=== PATIENT | male | born 1940 | race Caucasian/White ===

== ENCOUNTER 2021-01-30 09:29 | Emergency (ER) | payer MEDICARE, OTHER ==
[~2021-01-30] VITALS: Ht 175.3 cm; Wt 111.1 kg
[~2021-01-30 09:29] MED LIST: ALLOPURINOL300 MG PO; AMOXICILLIN500 MG PO; AREDS2; ASPIRIN EC81 MG PO; ATENOLOL50 MG PO; AUGMENTIN 875-1 EACH PO; CARVEDILOL25 MG PO; CEFTIN250 MG PO; CLINDAMYCIN HC150 MG PO; FAMOTIDINE40 MG PO; FUROSEMIDE20 MG PO; FUROSEMIDE40 MG PO; HYDROCHLOROTHIA50 MG PO; KEFLEX500 MG PO; KETOCONAZOLE15 GM TOP; LANTUS100 UNITS/ SUB-Q; LISINOPRIL20 MG PO; LISINOPRIL40 MG PO; LOVASTATIN20 MG PO; LOVASTATIN40 MG PO; METFORMIN HCL500 MG PO; METFORMIN HCL750 MG PO; NOVOLOG FL100 UNIT/1 SUB-Q; OMEPRAZOLE20 MG PO; OMNIPOD1 EACH SUB-Q; PREDNISONE20 MG PO; SPIRONOLACTONE25 MG PO; VICTOZA 3-0.6 MG/0.1 SUB-Q; VITAMIN D5000 UNIT PO; WARFARIN SODIUM5 MG PO
--- NOTE | 2021-01-30 12:24 | EKG ---
[facility] [address] [facility] [place] [address] Signed Sinus rhythm with 1st degree AV block Low voltage QRS Borderline ECG When compared with ECG of 06-JAN-2017 21:45, Sinus rhythm has replaced Atrial fibrillation Vent. rate has decreased BY 32 BPM Confirmed by RAFAEL PALAFOX DO ([id number]) on 01/30/2021 12:23:49 PM Electronically Signed By: RAFAEL PALAFOX DO 01/30/21 1224 PATIENT NAME: WILYL VELASQUEZ Electrocardiogram DATE OF : 42 PHYSICIAN: RAFAEL PALAFOX DO REPORT #: [id number] REPORT IS CONFIDENTIAL AND NOT TO BE RELEASED WITHOUT AUTHORIZATION
== END 2021-01-30 14:26 | disposition home or self-care (01) ==
LOC: ED 09:29
DX: D64.9 Anemia, unspecified (principal); E11.22 Type 2 diabetes mellitus with diabetic chronic kidney disease; I12.9 Hypertensive chronic kidney disease with stage 1 through stage 4 chronic kidney disease, or unspecified chronic kidney disease; N18.9 Chronic kidney disease, unspecified; E78.00 Pure hypercholesterolemia, unspecified; I48.91 Unspecified atrial fibrillation; Z87.891 Personal history of nicotine dependence; Z79.4 Long term (current) use of insulin; Z79.899 Other long term (current) drug therapy; Z79.01 Long term (current) use of anticoagulants; Z79.82 Long term (current) use of aspirin
CPT/HCPCS: 76705; 80053; 83735; 84484; 85025; 85610; 93005; 93010; 99284-25

== ENCOUNTER 2022-06-28 00:23 | Emergency (ER) | payer MEDICARE, OTHER ==
[~2022-06-28] VITALS: Ht 175.3 cm; Wt 116.6 kg
[~2022-06-28 00:23] MED LIST changes: +INSULIN AS100 UNIT/2 SUB-Q; +OZEMPIC1 MG/0.71 SUB-Q
== END 2022-06-28 01:11 | disposition home or self-care (01) ==
LOC: ED 00:23
DX: R04.0 Epistaxis (principal); I11.0 Hypertensive heart disease with heart failure; I50.9 Heart failure, unspecified; E11.9 Type 2 diabetes mellitus without complications; I25.10 Atherosclerotic heart disease of native coronary artery without angina pectoris; E78.00 Pure hypercholesterolemia, unspecified; I48.91 Unspecified atrial fibrillation; Z87.891 Personal history of nicotine dependence; Z79.899 Other long term (current) drug therapy; Z79.4 Long term (current) use of insulin; Z79.01 Long term (current) use of anticoagulants
CPT/HCPCS: 36415; 85610; 99283

== ENCOUNTER 2023-04-13 23:15 | Emergency (ER) | payer MEDICARE, OTHER ==
[~2023-04-13] VITALS: Ht 175.3 cm; Wt 118.0 kg
--- OUTSIDE RECORDS SUMMARY | ~2023-04-13 | XMS | Continuity of Care Document ---
Demographics + + + | Address | [address] | | | [place] [address] | + + + | Preferred Language | Unknown | + + + | Marital Status | | + + + | Taoism Affiliation | Unknown | + + + | Race | White | + + + | Ethnic Group | Not or | + + + Author + + + | Author | [facility] | + + + | Organization | [facility] | + + + | Address | [address] [facility] | | | [place] [address] | + + + | Phone | | + + + Care Team Providers + + + + | Care Base Draw Operator Name | Role | Phone | + + + + Unavailable | Unavailable | + + + + Unavailable | Unavailable | + + + + Unavailable | Unavailable | + + + + Unavailable | Unavailable | + + + + Allergies and Intolerances + + + + + + | date | description | facility | reaction | severity | + + + + + + | (no date) | No Known | [facility] | (no reaction) | (no severity) | | | Allergies | | | | + + + + + + Encounters No information. Functional Status No information. Immunizations + + + + | date | description | facility | + + + + | 2022-06-28 00:00 | No vaccine administered | [facility] | + + + + Medications + + + + | date | description | facility | + + + + | 2022-06-28 00:00 | ALLOPURINOL | [facility] | + + + + | 2022-06-28 00:00 | allopurinol 300 MG Oral | [facility] | | | Tablet | | + + + + | 2022-06-28 00:00 | ATENOLOL | [facility] | + + + + | 2022-06-28 00:00 | atenolol 50 MG Oral Tablet | [facility] | | | | | + + + + | 2016-06-27 00:00 | CLINDAMYCIN HCL | [facility] | + + + + | 2016-06-27 00:00 | clindamycin 150 MG Oral | [facility] | | | Capsule | | + + + + | 2022-06-28 00:00 | HYDROCHLOROTHIAZIDE | [facility] | + + + + | 2022-06-28 00:00 | hydrochlorothiazide 50 MG | [facility] | | | Oral Tablet | | + + + + | 2022-06-28 00:00 | LISINOPRIL | [facility] | + + + + | 2022-06-28 00:00 | lisinopril 40 MG Oral | [facility] | | | Tablet | | + + + + | 2022-06-28 00:00 | LOVASTATIN | [facility] | + + + + | 2022-06-28 00:00 | lovastatin 40 MG Oral | [facility] | | | Tablet | | + + + + | 2022-06-28 00:00 | OMEPRAZOLE | [facility] | + + + + | 2022-06-28 00:00 | omeprazole 20 MG Delayed | [facility] | | | Release Oral Capsule | | + + + + | 2022-06-28 00:00 | CARVEDILOL | [facility] | + + + + | 2022-06-28 00:00 | carvedilol 25 MG Oral | [facility] | | | Tablet | | + + + + | 2022-06-28 00:00 | KETOCONAZOLE | [facility] | + + + + | 2022-06-28 00:00 | ketoconazole 20 MG/ML | [facility] | | | Topical Cream | | + + + + | 2016-06-27 00:00 | CEPHALEXIN | [facility] | + + + + | 2016-06-27 00:00 | cephalexin 500 MG Oral | [facility] | | | Capsule [Keflex] | | + + + + | 2022-06-28 00:00 | 3 ML semaglutide 1.34 | [facility] | | | MG/ML Pen Injector | | | | [Ozempic] | | + + + + | 2022-06-28 00:00 | Semaglutide | [facility] | + + + + | 2022-06-28 00:00 | FAMOTIDINE | [facility] | + + + + | 2022-06-28 00:00 | famotidine 40 MG Oral | [facility] | | | Tablet | | + + + + | 2022-06-28 00:00 | INSULIN GLARGINE | [facility] | + + + + | 2022-06-28 00:00 | insulin glargine 100 | [facility] | | | UNT/ML Injectable Solution | | | | [Lantus] | | + + + + | 2014-01-24 00:00 | AMOXICILLIN | [facility] | + + + + | 2014-01-24 00:00 | amoxicillin 500 MG Oral | [facility] | | | Capsule | | + + + + | 2022-06-28 00:00 | ASPIRIN | [facility] | + + + + | 2022-06-28 00:00 | aspirin 81 MG Delayed | [facility] | | | Release Oral Tablet | | + + + + | 2022-06-28 00:00 | Insulin Aspart | [facility] | + + + + | 2022-06-28 00:00 | insulin aspart, human 100 | [facility] | | | UNT/ML Injectable Solution | | + + + + | 2022-06-28 00:00 | FUROSEMIDE | [facility] | + + + + | 2022-06-28 00:00 | furosemide 40 MG Oral | [facility] | | | Tablet | | + + + + | 2022-06-28 00:00 | LISINOPRIL | [facility] | + + + + | 2022-06-28 00:00 | lisinopril 20 MG Oral | [facility] | | | Tablet | | + + + + | 2014-07-03 00:00 | AMOXICILLIN/POTASSIUM CLAV | [facility] | | | | | + + + + | 2014-07-03 00:00 | amoxicillin 875 MG / | [facility] | | | clavulanate 125 MG Oral | | | | Tablet [Augment | | + + + + | 2022-06-28 00:00 | WARFARIN SODIUM | [facility] | + + + + | 2022-06-28 00:00 | warfarin sodium 5 MG Oral | [facility] | | | Tablet | | + + + + | 2022-06-28 00:00 | CHOLECALCIFEROL (VITAMIN | [facility] | | | D3) | | + + + + | 2022-06-28 00:00 | cholecalciferol 0.125 MG | [facility] | | | Oral Tablet | | + + + + | 2022-06-28 00:00 | 24 HR metformin | [facility] | | | hydrochloride 750 MG | | | | Extended Release Oral T | | + + + + | 2022-06-28 00:00 | METFORMIN HCL | [facility] | + + + + | 2022-06-28 00:00 | METFORMIN HCL | [facility] | + + + + | 2022-06-28 00:00 | metformin hydrochloride | [facility] | | | 500 MG Oral Tablet | | + + + + | 2022-06-28 00:00 | 3 ML liraglutide 6 MG/ML | [facility] | | | Pen Injector [Victoza] | | + + + + | 2022-06-28 00:00 | LIRAGLUTIDE | [facility] | + + + + Problems + + + + | date | description | facility | + + + + | 2014-07-03 00:00 | Sinusitis | [facility] | + + + + | 2014-07-03 00:00 | Sinusitis | [facility] | + + + + | 2014-11-20 00:00 | Cough | [facility] | + + + + | 2014-11-20 00:00 | Cough | [facility] | + + + + | 2014-11-29 00:00 | Constipation | [facility] | + + + + | 2014-11-29 00:00 | Patient left without being | [facility] | | | seen | | + + + + | 2014-11-29 00:00 | Constipation | [facility] | + + + + | 2014-11-29 00:00 | Patient left without being | [facility] | | | seen | | + + + + | 2016-06-27 00:00 | Cellulitis | [facility] | + + + + | 2016-06-27 00:00 | Cellulitis | [facility] | + + + + | 2016-06-29 00:00 | Encounter for wound | [facility] | | | re-check | | + + + + | 2016-06-29 00:00 | Encounter for wound | [facility] | | | re-check | | + + + + | 2017-01-06 00:00 | Nonspecific abdominal pain | [facility] | | | | | + + + + | 2017-01-06 00:00 | CHF (congestive heart | [facility] | | | failure) | | + + + + | 2017-01-06 00:00 | Congestive heart failure | [facility] | + + + + | 2017-01-06 00:00 | Nonspecific abdominal pain | [facility] | | | | | + + + + | 2021-01-30 00:00 | CRI (chronic renal | [facility] | | | insufficiency) | | + + + + | 2021-01-30 00:00 | Chronic renal impairment | [facility] | + + + + | 2022-06-28 00:00 | Epistaxis | [facility] | + + + + | 2022-06-28 00:00 | Epistaxis | [facility] | + + + + | 2022-10-02 07:55 | UNSPECIFIED ATRIAL | [facility] | | | FIBRILLATION | | + + + + | 2022-10-02 07:55 | ENCOUNTER FOR THERAPEUTIC | [facility] | | | DRUG LEVEL MONITORING | | + + + + | 2022-10-02 07:55 | CONCRETE BLOCK MOLDER (CURRENT) USE OF | [facility] | | | ANTICOAGULANTS | | + + + + | 2022-11-06 09:18 | UNSPECIFIED ATRIAL | [facility] | | | FIBRILLATION | | + + + + | 2022-11-06 09:18 | ENCOUNTER FOR THERAPEUTIC | [facility] | | | DRUG LEVEL MONITORING | | + + + + | 2022-11-06 09:18 | USP (CURRENT) USE OF | [facility] | | | ANTICOAGULANTS | | + + + + | 2022-12-11 09:20 | 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 | | + + + + | 2022-12-11 09:20 | MIXED HYPERLIPIDEMIA | [facility] | + + + + | 2022-12-11 09:20 | 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 | [facility] | | | FAIL AND STG 1-4/UNSP | | + + + + | 2022-12-11 09:20 | CHRONIC ISCHEMIC HEART | [facility] | | | DISEASE, UNSPECIFIED | | + + + + | 2022-12-11 09:20 | UNSPECIFIED ATRIAL | [facility] | | | FIBRILLATION | | + + + + | 2022-12-11 09:20 | HEART FAILURE, UNSPECIFIED | [facility] | | | | | + + + + | 2022-12-11 09:20 | UNSPECIFIED | [facility] | | | OSTEOARTHRITIS, UNSPECIFIED | | | | SITE | | + + + + | 2022-12-11 09:20 | CHRONIC KIDNEY DISEASE, | [facility] | | | UNSPECIFIED | | + + + + | 2022-12-11 09:20 | ENCOUNTER FOR THERAPEUTIC | [facility] | | | DRUG LEVEL MONITORING | | + + + + | 2022-12-11 09:20 | CONCRETE BLOCK MOLDER (CURRENT) USE OF | [facility] | | | ANTICOAGULANTS | | + + + + | 2023-01-22 08:00 | UNSPECIFIED ATRIAL | [facility] | | | FIBRILLATION | | + + + + | 2023-01-22 08:00 | ENCOUNTER FOR THERAPEUTIC | [facility] | | | DRUG LEVEL MONITORING | | + + + + | 2023-01-22 08:00 | CONCRETE BLOCK MOLDER (CURRENT) USE OF | [facility] | | | ANTICOAGULANTS | | + + + + | 2023-02-19 07:59 | UNSPECIFIED ATRIAL | [facility] | | | FIBRILLATION | | + + + + | 2023-02-19 07:59 | ENCOUNTER FOR THERAPEUTIC | [facility] | | | DRUG LEVEL MONITORING | | + + + + | 2023-02-19 07:59 | USP (CURRENT) USE OF | [facility] | | | ANTICOAGULANTS | | + + + + | 2023-04-02 07:58 | UNSPECIFIED ATRIAL | [facility] | | | FIBRILLATION | | + + + + | 2023-04-02 07:58 | ENCOUNTER FOR THERAPEUTIC | [facility] | | | DRUG LEVEL MONITORING | | + + + + | 2023-04-02 07:58 | USP (CURRENT) USE OF | [facility] | | | ANTICOAGULANTS | | + + + + Procedures No information. Results/Labs +--------+--------+ +---------+--------+---------+ | test | date | facility | value | unit | notes | +--------+--------+ +---------+--------+---------+ + + | Result panel 1 | + + + + + +--------+ + + | | 2022-06-28 | [facility] | 29.1 | (missing) | (missing) | | (unavailable | 00:40 | [facility] | | | | + + + +--------+ + + + + | Result panel 2 | + + + + + +--------+ + + | | 2022-06-28 | [facility] | 2.88 | (missing) | (missing) | | (unavailable | 00:40 | [facility] | | | | + + + +--------+ + + + + | Prothrombin time (PT) in platelet poor plasma by coagulation assay | + + + + + +--------+ + + | Prothrombin | 2022-06-28 | [facility] | 29.1 | (missing) | (missing) | | time (PT) | 00:40 | [facility] | | | | | in platelet | | Hospital | | | | | poor plasma | | | | | | | by | | | | | | | coagulation | | | | | | | assay | | | | | | + + + +--------+ + + + + | INR in Platelet poor plasma by Coagulation assay | + + + + + +--------+ + + | INR in | 2022-06-28 | [facility] | 2.88 | (missing) | (missing) | | Platelet | 00:40 | [facility] | | | | | poor plasma | | Hospital | | | | | by | | | | | | | Coagulation | | | | | | | assay | | | | | | + + + +--------+ + + Social History + + + + | date | description | facility | + + + + | 2022-06-28 00:00 | [facility] | + + + + Vital Signs + + + +---------+ | date | measurement | value | units | + + + +---------+ | 2022-06-28 00:00 | BMI | 38.0 | kg/m2 | + + + +---------+ | 2022-06-28 00:00 | BP_diastolic | 88 | mmHg | + + + +---------+ | 2022-06-28 00:00 | BP_systolic | 157 | mmHg | + + + +---------+ | 2022-06-28 00:00 | heart_rate | 87 | /min | + + + +---------+ | 2022-06-28 00:00 | height_metric | 175.26 | cm | + + + +---------+ | 2022-06-28 00:00 | height_standard | 69 | in | + + + +---------+ | 2022-06-28 00:00 | o2_saturation | 95 | % | + + + +---------+ | 2022-06-28 00:00 | respiration_rate | 16 | /min | + + + +---------+ | 2022-06-28 00:00 | temperature_metric | 36.61 | C | | | | | | + + + +---------+ | 2022-06-28 00:00 | | 97.9 | F | | | temperature_standar | | | | | d | | | + + + +---------+ | 2022-06-28 00:00 | weight_metric | 116.57 | kg | + + + +---------+ | 2022-06-28 00:00 | weight_standard | 256.99 | lb | + + + +---------+ | 2022-06-28 00:00 | weight_standard | 257 | lb | + + + +---------+"
--- OUTSIDE RECORDS SUMMARY | ~2023-04-13 | XMS | Continuity of Care Document ---
Demographics + + + | Address | [address] | | | [place] [address] | + + + | Preferred Language | Unknown | + + + | Marital Status | | + + + | Baptist Affiliation | Unknown | + + + | Race | White | + + + | Ethnic Group | Not or | + + + Author + + + | Author | [place] | + + + | Organization | [facility] | + + + | Address | [address] [facility] | | | [place] [address] | + + + | Phone | | + + + Care Team Providers + + + + | Care Wood Processing Worker Name | Role | Phone | + [...] 2022-06-28 00:00 | No vaccine administered | [facility] | + + + + Medications + + + + | date | description | facility | + + + + | 2022-06-28 00:00 | ALLOPURINOL | [facility] | + + + + | 2022-06-28 00:00 | allopurinol 300 MG Oral | [facility] | | | Tablet | | + + + + | 2022-06-28 00:00 | ATENOLOL | [facility] | + + + + | 2022-06-28 00:00 | atenolol 50 MG Oral Tablet | [facility] | | | | | + + + + | 2016-06-27 00:00 | CLINDAMYCIN HCL | [facility] | + + + + | 2016-06-27 00:00 | clindamycin 150 MG Oral | [facility] | | | Capsule | | + + + + | 2022-06-28 00:00 | HYDROCHLOROTHIAZIDE | [facility] | + + + + | 2022-06-28 00:00 | hydrochlorothiazide 50 MG | [facility] | | | Oral Tablet | | + + + + | 2022-06-28 00:00 | LISINOPRIL | [facility] | + + + + | 2022-06-28 00:00 | lisinopril 40 MG Oral | [facility] | | | Tablet | | + + + + | 2022-06-28 00:00 | LOVASTATIN | [facility] | + + + + | 2022-06-28 00:00 | lovastatin 40 MG Oral | [facility] | | | Tablet | | + + + + | 2022-06-28 00:00 | OMEPRAZOLE | [facility] | + + + + | 2022-06-28 00:00 | omeprazole 20 MG Delayed | [facility] | | | Release Oral Capsule | | + + + + | 2022-06-28 00:00 | CARVEDILOL | [facility] | + + + + | 2022-06-28 00:00 | carvedilol 25 MG Oral | [facility] | | | Tablet | | + + + + | 2022-06-28 00:00 | KETOCONAZOLE | [facility] | + + + + | 2022-06-28 00:00 | ketoconazole 20 MG/ML | [facility] | | | Topical Cream | | + + + + | 2016-06-27 00:00 | CEPHALEXIN | [facility] | + + + + | 2016-06-27 00:00 | cephalexin 500 MG Oral | [facility] | | | Capsule [Keflex] | | + + + + | 2022-06-28 00:00 | 3 ML semaglutide 1.34 | [facility] | | | MG/ML Pen Injector | | | | [Ozempic] | | + + + + | 2022-06-28 00:00 | Semaglutide | [facility] | + + + + | 2022-06-28 00:00 | FAMOTIDINE | [facility] | + + + + | 2022-06-28 00:00 | famotidine 40 MG Oral | [facility] | | | Tablet | | + + + + | 2022-06-28 00:00 | INSULIN GLARGINE | [facility] | + + + + | 2022-06-28 00:00 | insulin glargine 100 | [facility] | | | UNT/ML Injectable Solution | | | | [Lantus] | | + + + + | 2014-01-24 00:00 | AMOXICILLIN | [facility] | + + + + | 2014-01-24 00:00 | amoxicillin 500 MG Oral | [facility] | | | Capsule | | + + + + | 2022-06-28 00:00 | ASPIRIN | [facility] | + + + + | 2022-06-28 00:00 | aspirin 81 MG Delayed | [facility] | | | Release Oral Tablet | | + + + + | 2022-06-28 00:00 | Insulin Aspart | [facility] | + + + + | 2022-06-28 00:00 | insulin aspart, human 100 | [facility] | | | UNT/ML Injectable Solution | | + + + + | 2022-06-28 00:00 | FUROSEMIDE | [facility] | + + + + | 2022-06-28 00:00 | furosemide 40 MG Oral | [facility] | | | Tablet | | + + + + | 2022-06-28 00:00 | LISINOPRIL | [facility] | + + + + | 2022-06-28 00:00 | lisinopril 20 MG Oral | [facility] | | | Tablet | | + + + + | 2014-07-03 00:00 | AMOXICILLIN/POTASSIUM CLAV | [facility] | | | | | + + + + | 2014-07-03 00:00 | amoxicillin 875 MG / | [facility] | | | clavulanate 125 MG Oral | | | | Tablet [Augment | | + + + + | 2022-06-28 00:00 | WARFARIN SODIUM | [facility] | + + + + | 2022-06-28 00:00 | warfarin sodium 5 MG Oral | [facility] | | | Tablet | | + + + + | 2022-06-28 00:00 | CHOLECALCIFEROL (VITAMIN | [facility] | | | D3) | | + + + + | 2022-06-28 00:00 | cholecalciferol 0.125 MG | [facility] | | | Oral Tablet | | + + + + | 2022-06-28 00:00 | 24 HR metformin | [facility] | | | hydrochloride 750 MG | | | | Extended Release Oral T | | + + + + | 2022-06-28 00:00 | METFORMIN HCL | [facility] | + + + + | 2022-06-28 00:00 | METFORMIN HCL | [facility] | + + + + | 2022-06-28 00:00 | metformin hydrochloride | [facility] | | | 500 MG Oral Tablet | | + + + + | 2022-06-28 00:00 | 3 ML liraglutide 6 MG/ML | [facility] | | | Pen Injector [Victoza] | | + + + + | 2022-06-28 00:00 | LIRAGLUTIDE | [facility] | + + + + Problems + + + + | date | description | facility | + + + + | 2014-07-03 00:00 | Sinusitis | [facility] | + + + + | 2014-07-03 00:00 | Sinusitis | [facility] | + + + + | 2014-11-20 00:00 | Cough | [facility] | + + + + | 2014-11-20 00:00 | Cough | [facility] | + + + + | 2014-11-29 00:00 | Constipation | [facility] | + + + + | 2014-11-29 00:00 | Patient left without being | [facility] | | | seen | | + + + + | 2014-11-29 00:00 | Constipation | [facility] | + + + + | 2014-11-29 00:00 | Patient left without being | [facility] | | | seen | | + + + + | 2016-06-27 00:00 | Cellulitis | [facility] | + + + + | 2016-06-27 00:00 | Cellulitis | [facility] | + + + + | 2016-06-29 00:00 | Encounter for wound | [facility] | | | re-check | | + + + + | 2016-06-29 00:00 | Encounter for wound | [facility] | | | re-check | | + + + + | 2017-01-06 00:00 | Nonspecific abdominal pain | [facility] | | | | | + + + + | 2017-01-06 00:00 | CHF (congestive heart | [facility] | | | failure) | | + + + + | 2017-01-06 00:00 | Congestive heart failure | [facility] | + + + + | 2017-01-06 00:00 | Nonspecific abdominal pain | [facility] | | | | | + + + + | 2021-01-30 00:00 | CRI (chronic renal | [facility] | | | insufficiency) | | + + + + | 2021-01-30 00:00 | Chronic renal impairment | [facility] | + + + + | 2022-06-28 00:00 | Epistaxis | [facility] | + + + + | 2022-06-28 00:00 | Epistaxis | [facility] | + + + + | 2022-10-02 07:55 | UNSPECIFIED ATRIAL | [facility] | | | FIBRILLATION | | + + + + | 2022-10-02 07:55 | ENCOUNTER FOR THERAPEUTIC | [facility] | | | DRUG LEVEL MONITORING | | + + + + | 2022-10-02 07:55 | SUPERVISOR SEWER MAINTENANCE (CURRENT) USE OF | [facility] | | | ANTICOAGULANTS | | + + + + | 2022-11-06 09:18 | UNSPECIFIED ATRIAL | [facility] | | | FIBRILLATION | | + + + + | 2022-11-06 09:18 | ENCOUNTER FOR THERAPEUTIC | [facility] | | | DRUG LEVEL MONITORING | | + + + + | 2022-11-06 09:18 | RETIREMENT (CURRENT) USE OF | [facility] | | [...] + + + | 2022-12-11 09:20 | SUPERVISOR SEWER MAINTENANCE (CURRENT) USE OF | [facility] | | | ANTICOAGULANTS | | + + + + | 2023-01-22 08:00 | UNSPECIFIED ATRIAL | [facility] | | | FIBRILLATION | | + + + + | 2023-01-22 08:00 | ENCOUNTER FOR THERAPEUTIC | [facility] | | | DRUG LEVEL MONITORING | | + + + + | 2023-01-22 08:00 | SUPERVISOR SEWER MAINTENANCE (CURRENT) USE OF | [facility] | | | ANTICOAGULANTS | | + + + + | 2023-02-19 07:59 | UNSPECIFIED ATRIAL | [facility] | | | FIBRILLATION | | + + + + | 2023-02-19 07:59 | ENCOUNTER FOR THERAPEUTIC | [facility] | | | DRUG LEVEL MONITORING | | + + + + | 2023-02-19 07:59 | RETIREMENT (CURRENT) USE OF | [facility] | | | ANTICOAGULANTS | | + + + + | 2023-04-02 07:58 | UNSPECIFIED ATRIAL | [facility] | | | FIBRILLATION | | + + + + | 2023-04-02 07:58 | ENCOUNTER FOR THERAPEUTIC | [facility] | | | DRUG LEVEL MONITORING | | + + + + | 2023-04-02 07:58 | RETIREMENT (CURRENT) USE OF | [facility] | | [...] 2022-06-28 00:00 | [facility] | + + + + Vital [...]
[2023-04-13 23:57] VITALS: BP 140/39
== END 2023-04-13 23:58 | disposition home or self-care (01) ==
LOC: ED 23:15
DX: S51.812A Laceration without foreign body of left forearm, initial encounter (principal); X58.XXXA Exposure to other specified factors, initial encounter; Z79.01 Long term (current) use of anticoagulants; I11.0 Hypertensive heart disease with heart failure; I50.9 Heart failure, unspecified; I25.10 Atherosclerotic heart disease of native coronary artery without angina pectoris; I48.91 Unspecified atrial fibrillation; E11.9 Type 2 diabetes mellitus without complications; E78.00 Pure hypercholesterolemia, unspecified; Z87.891 Personal history of nicotine dependence; Z79.899 Other long term (current) drug therapy; Z79.4 Long term (current) use of insulin; Z79.82 Long term (current) use of aspirin
CPT/HCPCS: 99282

== ENCOUNTER 2023-05-13 11:46 | Emergency (ER) | payer MEDICARE, OTHER ==
[~2023-05-13] VITALS: Ht 175.3 cm; Wt 118.8 kg
--- OUTSIDE RECORDS SUMMARY | 2023-05-13 11:56 | XMS ---
PreManage Notification: WILLY VELASQUEZ Security Budget Coordinator Events No recent Security Events currently on file CRITERIA MET - [facility] - 2 Visits in 30 Days CARE PROVIDERS There are no care providers on record at this time. [place] has no Care Guidelines for this patient. [facility] MO[facility] NOTE: Visits indicate total known visits. ED/C VISIT TRACKING (12 MO.) [facility] COMPLAINT: - NAUSEA, WEAK, UNABLE TO WALK MUCH 04/13/2023 23:16 [facility] [place] TYPE: Emergency COMPLAINT: - SKIN TEAR ON BLOOD THINNERS DIAGNOSES: - Atherosclerotic heart disease of [place] coronary artery without angina pectoris - Exposure to other specified factors, initial encounter - Heart failure, unspecified - Hypertensive heart disease with heart failure - Laceration without foreign body of left forearm, initial encounter - longterm (current) use of anticoagulants - longterm (current) use of aspirin - termite control servicer (current) use of insulin - Other usp (current) drug therapy - Personal history of nicotine dependence - Pure hypercholesterolemia, unspecified - Type 2 diabetes mellitus without complications - Unspecified atrial fibrillation 06/28/2022 00:23 [facility] [place] TYPE: Emergency COMPLAINT: - NOSE BLEED DIAGNOSES: - Atherosclerotic heart disease of [place] coronary artery without angina pectoris - Epistaxis - Heart failure, unspecified - Hypertensive heart disease with heart failure - termite control servicer (current) use of anticoagulants - longterm (current) use of insulin - Other usp (current) drug therapy - Personal history of nicotine dependence - Pure hypercholesterolemia, unspecified - Type 2 diabetes mellitus without complications - Unspecified atrial fibrillation INPATIENT VISIT TRACKING (12 MO.) No inpatient visits to display in this time frame [email or web address]
[2023-05-13] MEDS ORDERED: ELIQUIS2.5 MG PO (12:18)
[2023-05-13 13:01] LABS: BASOPHILS 0.9 % (0-2); EOSINOPHILS 2.1 % (0-6); HEMATOCRIT 35.5 % (35.0-50.0); HEMOGLOBIN 11.6 g/dL (12.0-18.0); LYMPHOCYTES 10.7 % (24-44); MCH 32.1 (27-36); MCHC 32.7 g/dl (30-36); MCV 98.1 fl (81-99); NEUTROPHILS 72.3 % (39-80); PLATELET COUNT 201 K/uL (140-440); RBC 3.63 M/ul (4.3-5.7); RDW 14.5 (10.5-15.0)
[2023-05-13 13:32] LABS: INFLUENZA B NAA NEGATIVE (NEGATIVE); RESPIRATORY SYNCYTIAL VIR NAA NEGATIVE (NEGATIVE)
[2023-05-13 13:36] LABS: ALBUMIN 3.4 g/dL (3.4-5.0); ALBUMIN/GLOBULIN RATIO 1.03 (1.1-2.4); ANION GAP 7.7 (7-21); BILIRUBIN, TOTAL 0.6 ng/dL (0.2-1.0); BUN/CREATININE RATIO 22.34 (6.0-28.6); CALCIUM 8.9 mg/dL (8.5-10.1); CREATININE, SERUM 2.73 mg/dL (0.70-1.30); MAGNESIUM 2.3 mg/dL (1.8-2.4); POTASSIUM 4.7 mmol/L (3.5-5.1); PROTEIN, TOTAL 6.7 g/dL (6.4-8.2)
[2023-05-13] MEDS ORDERED: INDAPAMIDE1.25 MG PO (15:33)
[2023-05-13 15:53] VITALS: BP 152/79
== END 2023-05-13 15:55 | disposition home or self-care (01) ==
LOC: ED 11:46
PROVIDERS: Emergency Medicine
DX: R53.1 Weakness (principal); I13.0 Hypertensive heart and chronic kidney disease with heart failure and stage 1 through stage 4 chronic kidney disease, or unspecified chronic kidney disease; E11.22 Type 2 diabetes mellitus with diabetic chronic kidney disease; I50.9 Heart failure, unspecified; N18.9 Chronic kidney disease, unspecified; I48.91 Unspecified atrial fibrillation; I25.10 Atherosclerotic heart disease of native coronary artery without angina pectoris; E78.00 Pure hypercholesterolemia, unspecified; Z20.822 Contact with and (suspected) exposure to COVID-19; Z87.891 Personal history of nicotine dependence; Z79.01 Long term (current) use of anticoagulants; Z79.4 Long term (current) use of insulin; Z96.41 Presence of insulin pump (external) (internal)
CPT/HCPCS: 36415; 80053; 83735; 83880; 84484; 85025; 87502; C9803; U0002

== ENCOUNTER 2025-04-24 12:10 | Emergency (ER) | payer OTHER, MEDICARE ==
[~2025-04-24] VITALS: Ht 175.3 cm; Wt 105.5 kg
[~2025-04-24 12:10] MED LIST changes: +ELIQUIS2.5 MG PO; +INDAPAMIDE1.25 MG PO
[2025-04-24 16:07] VITALS: BP 145/90
== END 2025-04-24 16:07 | disposition home or self-care (01) ==
LOC: ED 12:10
DX: S51.802A Unspecified open wound of left forearm, initial encounter (principal); Z53.29 Procedure and treatment not carried out because of patient's decision for other reasons; Z79.01 Long term (current) use of anticoagulants; W01.198A Fall on same level from slipping, tripping and stumbling with subsequent striking against other object, initial encounter